=== PATIENT | female | born 1960 | race Caucasian/White ===

== ENCOUNTER 2017-07-01 12:10 | Day surgery (SDC) | payer BC, MEDICARE, OTHER ==
[~2017-07-01 12:10] MED LIST: Acetaminophen TAB* 325 MG PO PRN; Buffered Lidocaine 0.9% SYRIN* 5 ML/SYR SYRINGE INTRADERM ONE
[2017-07-01] MEDS ORDERED: Lidocaine 1% MPF* 2 ML VIAL ONE (12:36)
[2017-07-01] MEDS ORDERED: Phenylephrine 2.5% OPTH.SOL* 2 ML BTL ONE (12:36)
[2017-07-01] MEDS ORDERED: Flurbiprofen 0.03% OPTH.SOL* 2.5 ML BTL ONE (12:36)
[2017-07-01] MEDS ORDERED: Proparacaine 0.5% OPHTH.SOL* 15 ML BTL ONE (12:36)
[2017-07-01] MEDS ORDERED: Cyclopentolate 1% OPTH.SOL* 2 ML BTL ONE (12:36)
[2017-07-01] MEDS ORDERED: Povidone Iodine 5% OPTH* 30 ML BTL ONE (12:36)
[2017-07-01] MEDS ORDERED: acetaZOLAMIDE TAB* 250 MG ONE (12:36)
[2017-07-01] MEDS ORDERED: Neomycin/Polymy/Dex OPTH.SUSP* MAXITROL 0.1% 5 ML ONE (12:36)
[2017-07-01] MEDS ORDERED: Buffered Lidocaine 0.9% SYRIN* 5 ML/SYR SYRINGE ONE (12:36)
[2017-07-01] MEDS ORDERED: Ondansetron INJ* 2 MG/ML VIAL IV ONE (13:56)
[2017-07-01] MEDS ORDERED: Ondansetron INJ* 2 MG/ML VIAL ONE (13:57)
[2017-07-01 15:38] VITALS: BP 120/68
== END 2017-07-01 14:36 | disposition home or self-care (01) ==
LOC: OREAST 12:10
PROVIDERS: ATTEND Specialist
DX: H25.12 Age-related nuclear cataract, left eye (principal); I95.9 Hypotension, unspecified; R09.02 Hypoxemia; R42 Dizziness and giddiness; R11.0 Nausea; Z53.09 Procedure and treatment not carried out because of other contraindication
CPT/HCPCS: 93005; A9270-GY; J2405

== ENCOUNTER 2017-08-19 07:06 | Day surgery (SDC) | payer MEDICARE ==
[2017-08-19] MEDS ORDERED: Midazolam* 1 MG/ML 2 ML VIAL (2 MG) ONE (09:17)
[2017-08-19] MEDS ORDERED: fentaNYL* 50 MCG/ML 2 ML VIAL (100 MCG VIAL) ONE (09:32)
--- NOTE | 2017-08-19 10:00 | OP ---
DATE OF OPERATION: 08/19/2017 - [facility] DATE OF : 1960. SURGEON: Josef Miranda M.D. PREOPERATIVE DIAGNOSIS: Cataract left eye. POSTOPERATIVE DIAGNOSIS: Cataract left eye. OPERATIVE PROCEDURE: Phacoemulsification left eye with IOL. DESCRIPTION OF PROCEDURE: The patient was brought to the operating room after being given 1/2% Alcaine with epinephrine drops in the preoperative area. The eye was prepped and draped in the usual sterile fashion. Sterile drape and eyelid speculum were placed. Again, topical 1/2% Alcaine with epinephrine was given. A paracentesis incision was made at the 3 o'clock position with the No.75 blade. Clear cornea incision 2.2 x 2.2-mm was created at the 6 o'clock position starting at the anterior limbus using the 2.2-mm keratome. The anterior chamber was irrigated with 0.4 mL of 1% non-preservative intracameral lidocaine and filled with DisCoVisc. A capsulorrhexis was completed using the cystotome and the Utrata forceps. Hydrodissection was performed with balanced salt solution. The lens nucleus was removed with the Phacoemulsification handpiece without incident. Cortex was removed with the irrigation-aspiration handpiece. The capsular bag was re-inflated using DisCoVisc and an [id number] implant was inserted with the shooter. The irrigation-aspiration handpiece was used to remove all residual DisCoVisc. The eye was refilled with balanced salt solution and the wound checked and found to be watertight. Topical Maxitrol drops were given. [id number]/[facility] #: [id number] [facility]antiago
[2017-08-19 10:01] VITALS: BP 162/94
[2017-08-19] MEDS ORDERED: Phenylephrine 2.5% OPTH.SOL* 2 ML BTL ONE (13:33)
[2017-08-19] MEDS ORDERED: Neomycin/Polymy/Dex OPTH.SUSP* MAXITROL 0.1% 5 ML ONE (13:33)
[2017-08-19] MEDS ORDERED: Lidocaine 1% MPF* 2 ML VIAL ONE (13:33)
[2017-08-19] MEDS ORDERED: Lidocaine 2% EPI 1:200000 MPF* 20 ML VIAL ONE (13:33)
[2017-08-19] MEDS ORDERED: Cyclopentolate 1% OPTH.SOL* 2 ML BTL ONE (13:33)
[2017-08-19] MEDS ORDERED: Flurbiprofen 0.03% OPTH.SOL* 2.5 ML BTL ONE (13:33)
[2017-08-19] MEDS ORDERED: acetaZOLAMIDE TAB* 250 MG ONE (13:33)
[2017-08-19] MEDS ORDERED: Proparacaine 0.5% OPHTH.SOL* 15 ML BTL ONE (13:34)
[2017-08-19] MEDS ORDERED: Buffered Lidocaine 0.9% SYRIN* 5 ML/SYR SYRINGE ONE (13:34)
[2017-08-19] MEDS ORDERED: Povidone Iodine 5% OPTH* 30 ML BTL ONE (13:34)
== END 2017-08-19 10:05 | disposition home or self-care (01) ==
LOC: OREAST 07:06
PROVIDERS: ATTEND Specialist
DX: H25.812 Combined forms of age-related cataract, left eye (principal); H50.112 Monocular exotropia, left eye; Z87.891 Personal history of nicotine dependence; I10 Essential (primary) hypertension; I73.9 Peripheral vascular disease, unspecified; I65.29 Occlusion and stenosis of unspecified carotid artery; Z86.711 Personal history of pulmonary embolism; Z79.01 Long term (current) use of anticoagulants
CPT/HCPCS: A9270-GY; J2250; J3010; V2632